=== PATIENT | female | born 1985 | race Caucasian/White ===

== ENCOUNTER 2016-09-26 06:06 | Inpatient (IN) ==
[2016-09-26] MEDS ORDERED: OXYTOCIN/LR 20 UNIT/1,000 ML BAG IV SCH (06:30)
[2016-09-26] MEDS ORDERED: TERBUTALINE 1 MG/1 ML VIAL SUBCUT PRN (06:30)
[2016-09-26] MEDS ORDERED: ACETAMINOPHEN 325 MG TABLET PO PRN ×2 (06:30→17:02)
[2016-09-26] MEDS ORDERED: ONDANSETRON 4 MG/2 ML VIAL IV PRN ×2 (06:30→17:02)
[2016-09-26] MEDS ORDERED: BUTORPHANOL 2 MG/ML VIAL IV PRN (06:30)
[2016-09-26] MEDS: LACTATED RINGERS 1,000 ML IV SCH ×3 (06:35→19:20)
[2016-09-26 07:25] LABS: Basophils % 0.2 % (0.0-0.8); Eosinophils % 0.3 % (0.00-10.9); Hematocrit 30.6 VOL% (35.7-47.0); Hemoglobin 9.6 GM/DL (12.0-16.0); Immature Granulocytes % 0.7 %; Immature Granulocytes Absolute 0.08 #; Lymphocytes # 2.2 10*3/uL (1.4-4.0); Lymphocytes % 18.7 % (21.3-54.2); Mean Corpuscular HGB Conc 31.4 GM/DL (32-36); Mean Corpuscular Hemoglobin 25 PG (27-34); Mean Corpuscular Volume 79.5 FL (87-102); Mean Platelet Volume 11.2 FL (9.6-12.0); Monocytes # 0.8 10*3/uL (0.11-0.8); Neutrophils # 8.5 10*3/uL (1.4-7.4); Neutrophils % 73.1 % (38.7-73.9); Platelet Count 267 10*3/uL (130-400); Red Blood Count 3.85 10*6/uL (3.8-5.5); Red Cell Distribution Width 14.2 % (9.3-17.3); White Blood Count 11.6 10*3/uL (4.5-13.71)
[2016-09-26] MEDS ORDERED: ePHEDrine 50 MG/ML AMP IV PRN (12:01)
[2016-09-26] MEDS ORDERED: FAMOTIDINE 20 MG/2 ML VIAL IV ONE (12:01)
[2016-09-26] MEDS ORDERED: LACTATED RINGERS 1,000 ML IV ONE (12:01)
[2016-09-26] MEDS ORDERED: CITRIC ACID/SODIUM CITRATE 30 ML UDCUP PO ONE (12:01)
[2016-09-26] MEDS ORDERED: diphenhydrAMINE 50 MG/1 ML VIAL IV PRN ×2 (12:02)
[2016-09-26] MEDS ORDERED: hydrOXYzine HCL 25 MG/1 ML VIAL IM PRN (12:02)
[2016-09-26] MEDS ORDERED: PROMETHAZINE 25 MG/1 ML VIAL IM ONE (12:02)
[2016-09-26] MEDS ORDERED: fentaNYL 2 MCG/ROPIV 0.2% EPID 150 ML EPIDURAL SCH (12:02)
[2016-09-26] MEDS ORDERED: ePHEDrine 50 MG/ML AMP ONE (13:36)
[2016-09-26] MEDS ORDERED: LIDOCAINE 1% 50 ML VIAL ONE (16:14)
[2016-09-26] MEDS ORDERED: METHYLERGONOVINE 0.2 MG/1 ML AMP ONE (16:14)
[2016-09-26] MEDS ORDERED: miSOPROStol 200 MCG TABLET ONE (16:14)
[2016-09-26 16:53] LABS: Apearance,Urine CLEAR (Clear); Bilirubin,Urine Negative (Negative); Blood, Urine Negative (Negative); Glucose,Urine (UA) Negative (Negative); Ketones,Urine 20 mg/dL (Negative); Nitrite,Urine Negative (Negative); Protein,Urine Negative; RBC,Urine <1 /HPF (0-4); Squamous Epithelial Cell,Urine Occasional /HPF (0-10); Urine Color Straw (Yellow); Urine Specific Gravity 1.005 (1.001-1.035); Urine Urobilinogen < 2.0 EU/DL (0.2-1.0); WBC,Urine <1 /HPF (0-6)
[2016-09-26] MEDS ORDERED: BENZOCAINE 20%/MENTHOL 0.5% SPRAY 56 GM CAN TOP PRN (17:02)
[2016-09-26] MEDS ORDERED: RHO(D) IMMUNE GLOBULIN 300 MCG SYRINGE IM ONE (17:02)
[2016-09-26] MEDS ORDERED: IBUPROFEN 800 MG TABLET PO PRN (17:02)
[2016-09-26] MEDS ORDERED: oxyCODONE/ACETAMINOPHEN 5-325 MG TABLET PO PRN ×2 (17:02)
[2016-09-26] MEDS ORDERED: MEASLES/MUMPS/RUBELLA VACCINE 0.5 ML VIAL SUBCUT ONE (17:02)
[2016-09-26] MEDS ORDERED: BISACODYL 10 MG SUPP RECTAL PRN (17:02)
[2016-09-26] MEDS ORDERED: DIPH/TET/ACEL PERT BOOSTER VACCINE 0.5 ML VIAL IM ONE (17:02)
[2016-09-26] MEDS ORDERED: WITCH HAZEL PADS 100/JAR TOP PRN (17:02)
[2016-09-26] MEDS ORDERED: OXYTOCIN/LR 20 UNIT/1,000 ML BAG IV ONE (17:02)
[2016-09-26] MEDS ORDERED: HYDROCORTISONE 2.5% RECTAL CREAM 30 GM TUBE TOP PRN (17:02)
[2016-09-26] MEDS ORDERED: LANOLIN 50% CREAM 0.3 OZ TUBE TOP PRN (17:02)
--- NOTE | 2016-09-26 17:14 | History and Physical Update ---
History and Physical Update - Dictation Physical: refer to scanned H&P - Physical Exam Mental Status: alert and oriented Heart: regular rate and rhythm Lung: clear to auscultation Abdomen: within normal limits Vitals: within normal limits History and Physical Changes: 31 yo at 39 wks with hx of vag delivery of first two deliveries, then C/S for breech and IUGR with third delivery. Pt desires and expect she will be successful with her history. She understands BRCA of . No complications. GBS negative.
[2016-09-26] MEDS: DOCUSATE SODIUM 100 MG CAPSULE PO SCH (21:00)
--- NOTE | 2016-09-26 21:35 | Discharge Summary ---
Hospital Course - Hospital Course Hospital Course: Pt admitted for induction for at 39 wks with hx of 2 vaginal deliveries followed by a C/S for breech. Pt delivered without complications. Specialty Discharge - Follow Up or Referrals - Discharge Medications No Action No Known Home Medications [No Known Home Medications] Discharge Plan - Discharge Data Disposition: Disch To Home/Self Care Condition at Discharge: Stable Discharge Diet: regular diet Activity: other (pelvic rest x 6 wks) Hygiene: may shower Weight Bearing at Discharge: full weight bearing Driving: no restrictions (if not taking narcotics) Contact your physician if you experience:: fever over 101, Difficulty voiding, Redness or swelling, Nausea/Vomiting, Shortness of breath, Bleeding, pain uncontrolled by pain medications - Discharge Medications New Ibuprofen Tab [Motrin Tab] 800 mg PO Q6H PRN #30 tablet PRN Reason: Pain Moderate (4-7) oxyCODONE/ACETAMINOPHEN 5-325 [Percocet 5-325] 2 tablet PO Q6H PRN #20 tablet PRN Reason: Pain Severe (8-10) - Follow Up or Referral Follow Up: Daria Awan DO [Physician] - (6 wks) - Forms/Instructions Exam - Constitutional Vitals: Period Temp Pulse Resp BP Sys/Chávez Pulse Ox Last 24 Hr 97.2 F-98.6 F 76-100 18-20 116-136/68-77 96-99 General appearance: normal weight, no acute distress - Head Head exam: Present: normal inspection, normocephalic - Eye Eye exam: Present: EOMI - Respiratory Respiratory exam: Present: clear to auscultation bilaterally - Cardiovascular Cardiovascular exam: Present: regular rate and rhythm - GI/Abdominal GI/Abdominal exam: Present: soft (fundus firm, nontender) - Extremities Exam Extremities exam: Present: normal inspection - Neurological Exam Neurological exam: Present: alert, oriented X3 - Psychiatric Psychiatric exam: Present: normal affect, normal mood - Skin Skin exam: Present: normal color, warm Discharge Results Procedures and tests throughout hospitalization: Pending Orders 09/27/16 04:00 Comp Blood Count Auto Diff IN AM Labs on day of discharge: Labs from last 24 hours 09/26/16 09/26/16 09/26/16 15:10 07:08 07:07 WBC RBC Hgb Hct MCV MCH MCHC RDW Plt Count MPV Neut % (Auto) Lymph % (Auto) Hendricks % (Auto) Eos % (Auto) Baso % (Auto) Neut # (Auto) Lymph # (Auto) Hendricks # (Auto) Eos # (Auto) Baso # (Auto) Immature Gran % Nucleated RBC % Immature Gran # Nucleated RBCs # Urine Color Straw Urine Appearance Clear Urine pH 7.0 Ur Specific Lawson 1.005 Urine Protein Negative Urine Glucose (UA) Negative Urine Ketones 20 Urine Blood Negative Urine Nitrate Negative Urine Bilirubin Negative Urine Urobilinogen < 2.0 H Urine Leukocytes Negative Urine RBC <1 Urine WBC <1 Ur Squamous Epith Cells Occasional Ur Culture Indicated? Not indicated Treponema pallidum IgG Nonreactive Blood Type O POSITIVE Antibody Screen Negative 09/26/16 07:07 WBC 11.6 RBC 3.85 Hgb 9.6 L Hct 30.6 L MCV 79.5 L MCH 25 L MCHC 31.4 L RDW 14.2 Plt Count 267 MPV 11.2 Neut % (Auto) 73.1 Lymph % (Auto) 18.7 L Hendricks % (Auto) 7.0 Eos % (Auto) 0.3 Baso % (Auto) 0.2 Neut # (Auto) 8.5 H Lymph # (Auto) 2.2 Hendricks # (Auto) 0.8 Eos # (Auto) 0.0 Baso # (Auto) 0.0 Immature Gran % 0.7 Nucleated RBC % 0.0 Immature Gran # 0.08 Nucleated RBCs # 0.00 Urine Color Urine Appearance Urine pH Ur Specific Lawson Urine Protein Urine Glucose (UA) Urine Ketones Urine Blood Urine Nitrate Urine Bilirubin Urine Urobilinogen Urine Leukocytes Urine RBC Urine WBC Ur Squamous Epith Cells Ur Culture Indicated? Treponema pallidum IgG Blood Type Antibody Screen DS: Provider Date of admission: 09/26/16 06:06 Primary care physician: . No PCP Attending physician on admission: Daria Awan DO Consults: 09/26/16 06:30 Consult to Anesthesiology [CONS] Routine Consulting Provider: Reason for Anesthesiology: Epidural Consult Comment: Epidural for pain managment 09/26/16 17:02 Consult to Factory Lay Out Engineer [CONS] Routine Consult Factory Lay Out Engineer: Breast Feeding Discharging clinician: Daria Awan DO Expected date of discharge: 09/28/16
[2016-09-27 07:00] LABS: Basophils % 0.3 % (0.0-0.8); Eosinophils % 0.3 % (0.00-10.9); Hematocrit 26.4 VOL% (35.7-47.0); Hemoglobin 8.4 GM/DL (12.0-16.0); Immature Granulocytes % 0.5 %; Immature Granulocytes Absolute 0.06 #; Lymphocytes # 1.9 10*3/uL (1.4-4.0); Lymphocytes % 15.8 % (21.3-54.2); Mean Corpuscular HGB Conc 31.8 GM/DL (32-36); Mean Corpuscular Hemoglobin 26 PG (27-34); Mean Corpuscular Volume 80.2 FL (87-102); Mean Platelet Volume 11.1 FL (9.6-12.0); Monocytes # 0.8 10*3/uL (0.11-0.8); Neutrophils % 76.1 % (38.7-73.9); Platelet Count 204 10*3/uL (130-400); Red Blood Count 3.29 10*6/uL (3.8-5.5); Red Cell Distribution Width 14.2 % (9.3-17.3); White Blood Count 11.9 10*3/uL (4.5-13.71)
[2016-09-27] MEDS: DOCUSATE SODIUM 100 MG CAPSULE PO SCH ×3 (09:42→22:00)
[2016-09-28 07:59] VITALS: BP 136/76
--- NOTE | 2016-09-30 13:19 | Pathology Report from [facility] ---
ACCESSION # : [id number] PATIENT NAME : Sixto Lindsey ORDERING DR : NEETU LERMA CLINICAL HX: @ 39 wks gestation, previous C-secction x 1 POST-OP DX: Same SPECIMEN INFO: Placenta GROSS DESCRIPTION: Received fresh labeled with the patient's name and consists of a 427 gram placenta measuring 19.0 x 15.0 x 2.2 cm. membranes are pink -decker and translucent. The umbilical cord measures 38.0 cm, contains three vessels and is centrally inserted. The surface is blue-gipson and intact. The maternal surface is intact with a few scattered areas of fibrin noted on sectioning measuring up to 0.8 cm. Sections submitted: A membranes and cord, B and maternal surfaces. DIAGNOSIS FOR SIXTO LINDSEY: PLACENTA, MEMBRANES, UMBILICAL CORD: Focal placental infarction with dystrophic calcification, mild intervillous blood, attached fibrin clot. Tri-vessel umbilical cord. Membranes with focal chronic inflammation and attached blood. SERVICE DATE: 09/27/2016 REPORT DATE: 09/30/2016 PATHOLOGIST: Ailsia Hinkle
== END 2016-09-28 11:21 | disposition home or self-care (01) | DRG 775 ==
LOC: N.LD 06:06 → N.OB 18:23
PROVIDERS: ADMIT Obstetrics & Gynecology; ATTEND Obstetrics & Gynecology

== ENCOUNTER 2018-05-06 03:51 | Inpatient (IN) ==
[2018-05-06] MEDS ORDERED: ONDANSETRON 4 MG/2 ML VIAL IV PRN ×2 (04:21→16:52)
[2018-05-06] MEDS ORDERED: BUTORPHANOL 2 MG/ML VIAL IV PRN (04:21)
[2018-05-06] MEDS ORDERED: MEPERIDINE 50 MG/1 ML VIAL IV PRN (04:21)
[2018-05-06] MEDS ORDERED: ACETAMINOPHEN 325 MG TABLET PO PRN ×2 (04:21→16:52)
[2018-05-06 04:47] LABS: Basophils # 0.1 10*3/uL (0.0-0.2); Basophils % 0.7 % (0.0-0.8); Eosinophils # 0.1 10*3/uL (0.0-0.87); Eosinophils % 1.2 % (0.00-10.9); Hematocrit 27.1 VOL% (35.7-47.0); Hemoglobin 8.5 GM/DL (12.0-16.0); Immature Granulocytes % 0.8 %; Immature Granulocytes Absolute 0.08 #; Lymphocytes # 2.9 10*3/uL (1.4-4.0); Mean Corpuscular HGB Conc 31.4 GM/DL (32-36); Mean Corpuscular Hemoglobin 25 PG (27-34); Mean Corpuscular Volume 78.8 FL (87-102); Mean Platelet Volume 10.5 FL (9.6-12.0); Monocytes # 0.9 10*3/uL (0.11-0.8); Monocytes % 8.6 % (1.7-12.7); Neutrophils # 5.9 10*3/uL (1.4-7.4); Neutrophils % 59.7 % (38.7-73.9); Platelet Count 301 T/CUMM (130-400); Red Blood Count 3.44 MC/CUMM (3.8-5.5); White Blood Count 9.9 T/CUMM (4-12)
[2018-05-06] MEDS: LACTATED RINGERS 1,000 ML IV SCH ×3 (05:15→16:07)
[2018-05-06] MEDS ORDERED: OXYTOCIN/LR 20 UNIT/1,000 ML BAG IV SCH (05:30)
[2018-05-06] MEDS ORDERED: AMPICILLIN INJ 2,000 MG in SODIUM CHLORIDE 0.9% 100 ML IV SCH (05:30)
[2018-05-06 09:04] LABS: Hepatitis B Surface Ag Quant < 0.10 Index; Hepatitis B Surface Ag Result Negative (Negative); Rubella Antibody IgG 57.6 IU/ML
[2018-05-06] MEDS: AMPICILLIN INJ 1,000 MG in SODIUM CHLORIDE 0.9% 100 ML IV SCH ×2 (09:30→14:18)
[2018-05-06 09:33] LABS: HIV Antigen/Antibody Result Nonreactive (Nonreactive)
[2018-05-06] MEDS ORDERED: FAMOTIDINE 20 MG/2 ML VIAL IV ONE (13:20)
[2018-05-06] MEDS ORDERED: ePHEDrine 50 MG/ML AMP IV PRN (13:20)
[2018-05-06] MEDS ORDERED: diphenhydrAMINE 50 MG/1 ML VIAL IV PRN (13:20)
[2018-05-06] MEDS ORDERED: PROMETHAZINE 25 MG/1 ML VIAL IM PRN (13:20)
[2018-05-06] MEDS ORDERED: hydrOXYzine HCL 25 MG/1 ML VIAL IM PRN (13:20)
[2018-05-06] MEDS ORDERED: CITRIC ACID/SODIUM CITRATE 30 ML UDCUP PO ONE (13:20)
[2018-05-06] MEDS ORDERED: fentaNYL 2 MCG/ROPIV 0.2% EPID 150 ML EPIDURAL SCH (13:30)
[2018-05-06 15:35] LABS: Apearance,Urine CLEAR (Clear); Bilirubin,Urine Negative (Negative); Blood, Urine Negative (Negative); Glucose,Urine (UA) Negative (Negative); Ketones,Urine 80 mg/dL (Negative); Nitrite,Urine Negative (Negative); Protein,Urine Negative; RBC,Urine 1 /HPF (0-4); Urine Color Yellow (Yellow); Urine Specific Gravity 1.009 (1.001-1.035); Urine Urobilinogen < 2.0 EU/DL (0.2-1.0); WBC,Urine 1 /HPF (0-6)
[2018-05-06] MEDS ORDERED: LIDOCAINE 1% 50 ML VIAL ONE (16:31)
[2018-05-06] MEDS ORDERED: miSOPROStol 200 MCG TABLET ONE (16:31)
[2018-05-06] MEDS ORDERED: LANOLIN 50% CREAM 0.3 OZ TUBE TOP PRN (16:52)
[2018-05-06] MEDS ORDERED: MEASLES/MUMPS/RUBELLA VACCINE 0.5 ML VIAL SUBCUT ONE (16:52)
[2018-05-06] MEDS ORDERED: WITCH HAZEL PADS 100/JAR TOP PRN (16:52)
[2018-05-06] MEDS ORDERED: BISACODYL 10 MG SUPP RECTAL PRN (16:52)
[2018-05-06] MEDS ORDERED: oxyCODONE/ACETAMINOPHEN 5-325 MG TABLET PO PRN ×2 (16:52)
[2018-05-06] MEDS ORDERED: DIPH/TET/ACEL PERT BOOSTER VACCINE 0.5 ML VIAL IM ONE (16:52)
[2018-05-06] MEDS ORDERED: HYDROCORTISONE 2.5% RECTAL CREAM 30 GM TUBE TOP PRN (16:52)
[2018-05-06] MEDS ORDERED: RHO(D) IMMUNE GLOBULIN 300 MCG SYRINGE IM ONE (16:52)
[2018-05-06] MEDS ORDERED: OXYTOCIN/LR 20 UNIT/1,000 ML BAG IV ONE (16:52)
[2018-05-06] MEDS ORDERED: BENZOCAINE 20%/MENTHOL 0.5% SPRAY 56 GM CAN TOP PRN (16:52)
[2018-05-06] MEDS: IBUPROFEN 800 MG TABLET PO PRN (19:10)
[2018-05-07] MEDS: IBUPROFEN 800 MG TABLET PO PRN ×2 (03:49→17:08)
[2018-05-07 04:31] LABS: Basophils # 0.1 10*3/uL (0.0-0.2); Basophils % 0.3 % (0.0-0.8); Eosinophils # 0.1 10*3/uL (0.0-0.87); Eosinophils % 0.4 % (0.00-10.9); Hematocrit 24.7 VOL% (35.7-47.0); Hemoglobin 7.8 GM/DL (12.0-16.0); Immature Granulocytes % 0.6 %; Immature Granulocytes Absolute 0.09 #; Lymphocytes # 2.6 10*3/uL (1.4-4.0); Lymphocytes % 16.6 % (21.3-54.2); Mean Corpuscular HGB Conc 31.6 GM/DL (32-36); Mean Corpuscular Hemoglobin 24 PG (27-34); Mean Corpuscular Volume 76.9 FL (87-102); Mean Platelet Volume 10.8 FL (9.6-12.0); Monocytes # 1.1 10*3/uL (0.11-0.8); Monocytes % 7.2 % (1.7-12.7); Neutrophils # 11.6 10*3/uL (1.4-7.4); Neutrophils % 74.9 % (38.7-73.9); Platelet Count 286 T/CUMM (130-400); Red Blood Count 3.21 MC/CUMM (3.8-5.5); White Blood Count 15.5 T/CUMM (4-12)
[2018-05-07] MEDS: DOCUSATE SODIUM 100 MG CAPSULE PO SCH ×2 (09:21→21:39)
[2018-05-07] MEDS: FERROUS SULFATE 325 MG TABLET PO SCH ×2 (09:21→21:39)
[2018-05-08 08:43] VITALS: BP 112/76
[2018-05-08] MEDS: DOCUSATE SODIUM 100 MG CAPSULE PO SCH (09:09)
[2018-05-08] MEDS: FERROUS SULFATE 325 MG TABLET PO SCH (09:10)
== END 2018-05-08 12:30 | disposition home or self-care (01) | DRG 775 ==
LOC: N.LDOUT 03:51 → N.LD 03:53 → N.OB 21:37
PROVIDERS: ADMIT Obstetrics & Gynecology; ATTEND Obstetrics & Gynecology